=== PATIENT | male | born 1975 | race Two or more races ===

== ENCOUNTER 2023-11-08 23:18 | Emergency (ER) | payer OTHER ==
[~2023-11-08] VITALS: Ht 177.8 cm; Wt 104.3 kg
[2023-11-08] MEDS ORDERED: SUBOXONE 8 MG-1 EACH SL (23:31)
[2023-11-09] MEDS ORDERED: ALBUTEROL SULFATE 3 ML/2.5 MG AMPUL.NEB IH SCH (01:45)
[2023-11-09 02:19] LABS: HEMATOCRIT 43.6 % (39.0-48.0); HEMOGLOBIN 14.7 g/dL (13-16.00); MEAN CELL VOLUME 87.3 fL (80.0-100.00); MEAN CORPUSCULAR HEMOGLOBIN 29.4 pg (27.00-32.0); MEAN CORPUSCULAR HGB CONC 33.7 g/dl (32.0-36.0); PLATELET COUNT 262 K/uL (150-450); RED CELL DISTRIBUTION WIDTH 13.2 % (11.5-14.5)
[2023-11-09 03:03] LABS: ABG PH 7.459 (7.35-7.45); ABG PO2 103.7 mmHg (80-100); ABG pCO2 34.2 mmHg (35-45); BASE EXCESS 0.5 mmol/l; BICARBONATE 23.7 mmol/l (23-25); SaO2 98.3 %; Tco2 24.7 mmol/l
[2023-11-09 03:04] LABS: allen test SATISFACTORY; o2 21 %; puncture site RADIAL RIGHT
[2023-11-09 04:02] LABS: ALBUMIN 4.2 gm/dL (3.4-5.0); BILIRUBIN TOTAL 0.19 mg/dL (0.3-1.2); CALCIUM 9.6 mg/dL (8.5-10.1); CREATININE SERUM 0.83 mg/dL (0.70-1.30); GFR 98.88; GLOBULINA 3.9 G/DL (2.4-3.5); POTASSIUM 3.89 mEq/L (3.5-5.1); TOTAL PROTEIN 8.1 gm/dL (6.4-8.2)
[2023-11-09 04:31] LABS: D DIMER 0.26 MG/L
[2023-11-09 04:53] LABS: INR 0.98; PROTHROMBIN TIME 10.3 SECONDS (9.0-11.5)
[2023-11-09] MEDS ORDERED: BUDESONIDE0.5 MG/2 M IH (06:04)
[2023-11-09] MEDS ORDERED: ALBUTEROL2.5 MG/3 M IH (06:04)
[2023-11-09] MEDS ORDERED: KETO10TA2 PO (06:10)
== END 2023-11-09 06:13 ==
LOC: ER 23:19
PROVIDERS: General Practice
DX: R06.02 Shortness of breath (principal); E11.9 Type 2 diabetes mellitus without complications

== ENCOUNTER 2024-05-21 18:43 | Outpatient (CLI) | payer OTHER ==
[~2024-05-21 18:43] MED LIST: ALBUTEROL2.5 MG/3 M IH; BUDESONIDE0.5 MG/2 M IH; KETO10TA2 PO; SUBOXONE 8 MG-1 EACH SL
== END 2024-05-21 23:00 | disposition home or self-care (01) ==
LOC: LAB 18:43
PROVIDERS: ATTEND Urology
DX: R97.20 Elevated prostate specific antigen [PSA] (principal)

== ENCOUNTER 2025-04-12 08:41 | Emergency (ER) | payer OTHER ==
[~2025-04-12] VITALS: Ht 175.3 cm; Wt 83.9 kg
[2025-04-12] MEDS ORDERED: KETOROLAC TROMETHAMINE 60 MG VIAL IM ONE (09:30)
== END 2025-04-12 14:03 | disposition home or self-care (01) ==
LOC: ER 08:41
DX: S22.31XA Fracture of one rib, right side, initial encounter for closed fracture (principal); S29.9XXA Unspecified injury of thorax, initial encounter; W05.1XXA Fall from non-moving nonmotorized scooter, initial encounter; Y93.89 Activity, other specified; Y92.89 Other specified places as the place of occurrence of the external cause; Y99.8 Other external cause status; M79.601 Pain in right arm; M25.511 Pain in right shoulder